=== PATIENT | female | born 2000 | race Caucasian/White ===

== ENCOUNTER 2019-09-09 11:19 | Emergency (ER) | payer OTHER, SELFPAY ==
[2019-09-09 11:25] VITALS: BP 147/82; PULSE 81; RESP 20; TEMP 36.8; O2SAT 98
--- NOTE | 2019-09-09 11:40 | ED.URI ---
HPI - URI/Sore Throat General Chief Complaint: Upper Respiratory Infection Stated Complaint: Congestion History of Present Illness HPI Narrative: This is a 19-year-old female comes in complaining of sinus pressure and congestion patient states that is been going on for the past 3 to 4 days patient says she has had headaches a lot of pain in her facial T-zone area. Patient states she is taken some Mucinex as well as some Tylenol for the pain denies any allergy medication. Related Data Home Medications Medication Instructions Recorded Confirmed sertraline 150 mg PO DAILY 09/09/19 09/09/19 Allergies Allergy/AdvReac Type Severity Reaction Status Date / Time amoxicillin AdvReac Mild Nausea and Unverified 09/09/19 11:23 Vomiting Review of Systems Review of Systems: Narrative: CONSTITUTIONAL: Denies fever, chills, or sweats. EYES: Denies visual changes, redness, or discharge. ENT: Reports rhinorrhea, congestion, sore throat, or otalgia. CARDIOVASCULAR:Denies chest pain, palpitations, or edema. RESPIRATORY: Denies cough or dyspnea. GASTROINTESTINAL: Denies abdominal pain, nausea, vomiting, or diarrhea. GENITOURINARY: Denies dysuria or hematuria. SKIN:[Denies rash or itching. MUSCULOSKELETAL:Denies back pain, joint pain, or myalgia. NEUROLOGIC: Denies headache, numbness, or weakness. PSYCHIATRIC:Denies anxiety or depression PMFSH Past Medical History Medical History (Updated 09/09/19 @ 11:42 by Rajinder Rainey NP) Anxiety Asthma Depression Migraine Surgical History Surgical History (Updated 06/28/19 @ 07:51 by David Huitron DO) History of nasal septoplasty Social History Social History Gender identity (if verbalized by the patient): Female Comments At time as signature, I have reviewed and agree with nursing past medical, social, surgical and family history. Please see nursing chart for further information. There is no relevant family history pertinent to the presenting complaint. Exam Narrative: Exam Narrative: GENERAL:Well-appearing, well-nourished, and in no acute distress. HEAD:Normocephalic, atraumatic. EYES: PERRLA and EOMI. ENT: Nares clear, no rhinorrhea or epistaxis. Mucous membranes moist. T-zone pressure facial pain, postnasal drainage with slight pharyngeal erythema NECK: Supple. CHEST: Clear to auscultation. No respiratory distress. HEART: Regular rate and rhythm. No murmur heard. Normal peripheral pulses. ABDOMEN: Soft, nontender, nondistended, normal active bowel sounds. EXTREMITIES: Normal range of motion. No edema. SKIN: Warm, dry, no rash. NEURO: No focal deficits. Alert and oriented x3. Course Vital Signs Vital signs: Vital Signs Temperature 98.2 F 09/09/19 11:25 Pulse Rate 81 09/09/19 11:25 Respiratory Rate 20 09/09/19 11:25 Blood Pressure 147/82 H 09/09/19 11:25 Pulse Oximetry 98 09/09/19 11:25 Temperature 98.2 F 09/09/19 11:25 Pulse Rate 81 09/09/19 11:25 Respiratory Rate 20 09/09/19 11:25 Blood Pressure 147/82 H 09/09/19 11:25 Pulse Oximetry 98 09/09/19 11:25 MDM - URI/Sore Throat Differential Diagnosis Differential diagnosis: Likely upper respiratory infection, otitis media, sinusitis, viral infection, bronchitis and pharyngitis Discharge Plan Discharge Clinical Impression: Rhinosinusitis Patient Disposition: Home, Self-Care Condition: Stable Instructions: Antibiotic Form, Rhinosinusitis (ED) Prescriptions: New loratadine [Claritin] 10 mg tablet 10 mg PO DAILY PRN (Reason: allergy symptoms) Qty: 30 RF: 0 amoxicillin-pot clavulanate [Augmentin] 875-125 mg tablet 1 tablet PO Q12H Qty: 20 RF: 0 fluticasone propionate [Flonase Allergy Relief] 50 mcg/actuation spray,suspension 1 spray NASAL DAILY Qty: 18.2 RF: 0 No Action sertraline 100 mg tablet 150 mg PO DAILY RF: 0 Follow-up/Referrals: Claudette,JOSE FinchP-SOHAN [Primary Care Provider] - Time of Disposition:
== END 2019-09-09 11:48 | disposition home or self-care (01) ==
PROVIDERS: Emergency Provider Nurse Practitioner Family; PCP Nurse Practitioner Family
DX: J31.0 Chronic rhinitis (principal); J32.9 Chronic sinusitis, unspecified; J45.909 Unspecified asthma, uncomplicated; F41.9 Anxiety disorder, unspecified; F32.9 Major depressive disorder, single episode, unspecified
CPT/HCPCS: 99213; G0463

== ENCOUNTER 2020-01-28 10:11 | Emergency (ER) | payer OTHER, SELFPAY ==
--- NOTE | ~2020-01-28 | XR_ITS ---
EXAMINATION: XR knee LT min 4V DATE: 01/28/2020 10:38 INDICATION: Left knee pain TECHNIQUE: Four views of the left knee were obtained. COMPARISON: None. FINDINGS: Alignment is normal. No fracture or osteochondral lesion. Joint spaces are normal with no e rosions. No joint effusion/synovitis. Soft tissues are unremarkable. IMPRESSION: 1. No acute osseous abnormality. Reviewed, dictated and finalized at location A.
[2020-01-28 10:23] VITALS: BP 149/96; PULSE 101; RESP 20; TEMP 36.9; O2SAT 99
--- NOTE | 2020-01-28 10:26 | ED.GENADULT ---
HPI - General Adult General Chief complaint: Extremity Problem,Nontraumatic Stated complaint: left knee pain Source: patient and RN notes reviewed Mode of arrival: ambulatory Limitations: no limitations History of Present Illness HPI narrative: Pt presents for evaluation of left knee pain for the last two days. She states that she was pushing her legs down in a reclining chair when she felt pain in left anterolateral knee. Pain is sharp, constant, 10/10, without radiation. No paresthesias. She tried taking OTC NSAIDs without much improvement. Hx of ligamentous repair in left knee in 2014. She has been able to ambulate since that time, however, movement makes her pain worse. No additional complaints or concerns. Related Data Home Medications Medication Instructions Recorded Confirmed sertraline 150 mg PO DAILY 09/09/19 01/28/20 Allergies Allergy/AdvReac Type Severity Reaction Status Date / Time amoxicillin AdvReac Mild Nausea and Verified 01/28/20 10:16 Vomiting Review of Systems Review of Systems: All systems reviewed & are unremarkable except as noted in HPI and below Constitutional: Constitutional: Reports as per HPI and Reports no additional constitutional complaints Eyes: Eyes: Reports as per HPI and Reports no additional eye complaints ENT: Reports system reviewed and no additional complaints, except as documented Cardiovascular: Cardiovascular: Reports as per HPI Respiratory: Respiratory: Reports as per HPI Gastrointestinal: Gastrointestinal: Reports as per HPI Genitourinary: Genitourinary: Reports no additional female genitourinary complaints Musculoskeletal: Musculoskeletal: Reports no additional musculoskeletal complaints, Reports as per HPI and Reports arthralgias (left knee pain) Integumentary/Breasts: Skin/Breast: Reports system reviewed and no additional complaints, except as docu Neurologic: Reports system reviewed and no additional complaints, except as documented Psychiatric: Psychiatric: Reports no additional psychiatric complaints Endocrine: Endocrine: Reports no additional endocrine complaints Hematologic/Lymphatic: Hematologic/Lymphatic: Reports no additional hematologic/lymphatic complaints Allergic/Immunologic: Allergic/Immunologic: Reports no additional allergic/immunologic complaints [facility] Past Medical History Medical History (Updated 01/28/20 @ 10:49 by Naseem Sutton, AKIRA, BC) Anxiety Asthma Depression Migraine Surgical History Surgical History (Updated 01/28/20 @ 10:38 by Naseem Sutton, AKIRA, BC) History of arthroplasty of left knee History of nasal septoplasty Family History Family History Mother No problems noted. Father No problems noted. Social History Social History Gender identity (if verbalized by the patient): Female Exam Const: General: healthy appearing, no acute distress and alert Nutritional Appearance: well nourished and obese Orientation/consciousness: patient oriented x3 HENMT: Head: normal to inspection Mouth: Yes moist mucous membranes Teeth and gingiva: dentition normal Throat: posterior oropharynx normal Eyes: Conjunctivae: conjunctivae normal Pupils: Equal, round and reactive pupils present EOM: EOMs intact bilaterally Neck: Neck: normal visual inspection and no lymphadenopathy Chest: Chest palpation & inspection: normal inspection of the chest Resp: Effort & Inspection: normal respiratory effort Auscultation: clear to auscultation bilaterally Cardio: Rate: regular rate Rhythm: regular rhythm GI: GI Palp: Yes Soft to palpation Percussion: Yes normal to percussion Auscultation: normal bowel sounds : General: Yes no CVA tenderness Back/Spine/Pelvis: Back: no CVA tenderness Skin: General skin exam: normal color Rashes: no rashes Wounds: no wounds Neuro: General: p
== END 2020-01-28 11:01 | disposition home or self-care (01) ==
PROVIDERS: Emergency Provider Nurse Practitioner
DX: S86.912A Strain of unspecified muscle(s) and tendon(s) at lower leg level, left leg, initial encounter (principal); X50.9XXA Other and unspecified overexertion or strenuous movements or postures, initial encounter; F32.9 Major depressive disorder, single episode, unspecified; F41.9 Anxiety disorder, unspecified
CPT/HCPCS: 73564; 99213; G0463

== ENCOUNTER 2020-09-07 18:59 | Emergency (ER) | payer OTHER, SELFPAY ==
[2020-09-07 19:10] VITALS: BP 147/85; PULSE 61; RESP 16; TEMP 36.2; O2SAT 100
--- NOTE | 2020-09-07 19:26 | ED.DENTAL ---
HPI - Dental/Oral General Chief complaint: Dental/Oral Stated complaint: Tooth Pain Time Seen by Provider: 09/07/20 19:26 Source: patient and RN notes reviewed Mode of arrival: ambulatory Limitations: no limitations History of Present Illness HPI Narrative: 20-year-old female presents to the [facility] with complaints of dental pain. states that she was seen at [facility] last week and was told she needed a root canal and was placed on a waiting list. No swelling noted. Facial symmetry noted. Tooth decay noted MD Complaint: tooth pain Teeth map: 1. Fractured tooth Related Data Home Medications Medication Instructions Recorded Confirmed sertraline 150 mg PO DAILY 09/09/19 09/07/20 Allergies Allergy/AdvReac Type Severity Reaction Status Date / Time amoxicillin AdvReac Mild Nausea and Verified 01/28/20 10:16 Vomiting Review of Systems Review of Systems: Narrative: CONSTITUTIONAL: Denies fever, chills, or sweats. EYES: Denies visual changes, redness, or discharge. ENT: Denies rhinorrhea, congestion, sore throat, or otalgia. right upper dental pain CARDIOVASCULAR: Denies chest pain, palpitations, or edema. RESPIRATORY: Denies cough or dyspnea. SKIN: Denies rash or itching. MUSCULOSKELETAL: Denies back pain, joint pain, or myalgia. NEUROLOGIC: Denies headache, numbness, or weakness. PSYCHIATRIC: Denies anxiety or depression. All other systems reviewed are negative, except as documented in HPI. [facility] Past Medical History Medical History (Updated 09/08/20 @ 15:42 by Pauly Arce) Anxiety Asthma Depression Migraine Surgical History Surgical History (Updated 01/28/20 @ 10:38 by AKIRA Sabillon, SOHAN) History of arthroplasty of left knee History of nasal septoplasty Family History Family History Mother No problems noted. Father No problems noted. Social History Social History Gender identity (if verbalized by the patient): Female Comments At the time of my signature, I reviewed and agree with the nursing past medical, surgical, social, and family history. There is no relevant family history pertinent to the patient complaint. Exam Narrative: Exam Narrative: GENERAL: This is a well-nourished, well-developed patient, in no apparent distress. Morbidly obese HEAD: normocephalic, atraumatic. EYES: PERRL. Sclera clear/white. Vision is grossly intact. EARS: External ears normal, auditory canals clear and without drainage, TMs normal without perforation. Hearing grossly intact. NOSE: External nose normal with no obvious nasal discharge, nares without redness, no rhinorrhea. THROAT: Mucous membranes moist, posterior pharynx clear. Dental decay noted NECK: Neck supple, non-tender without lymphadenopathy, masses or thyromegaly. CARDIOVASCULAR: Regular rate and rhythm without murmurs, gallops, or rubs. NEURO: awake, alert, and oriented to person, place and time. There were no obvious focal neurologic abnormalities. EXTREMITIES: No joint tenderness, effusion, or edema noted. BACK: Nontender without deformity. Course Vital Signs Vital signs: Vital Signs Temperature 97.1 F L 09/07/20 19:10 Pulse Rate 61 09/07/20 19:10 Respiratory Rate 16 09/07/20 19:10 Blood Pressure 147/85 H 09/07/20 19:10 Pulse Oximetry 100 09/07/20 19:10 Temperature 97.1 F L 09/07/20 19:10 Pulse Rate 61 09/07/20 19:10 Respiratory Rate 16 09/07/20 19:10 Blood Pressure 147/85 H 09/07/20 19:10 Pulse Oximetry 100 09/07/20 19:10 Reviewed. Encourage patient to follow-up with primary care provider for blood pressure recheck MDM - Dental/Oral MDM Narrative Medical decision making narrative: Encourage patient to keep calling in regards to dental providers. List will be provided as well. Discharge instructions reviewed with patient, as well as provided
== END 2020-09-07 19:36 | disposition home or self-care (01) ==
PROVIDERS: Emergency Provider Nurse Practitioner; PCP Nurse Practitioner Family
DX: K08.89 Other specified disorders of teeth and supporting structures (principal); S02.5XXA Fracture of tooth (traumatic), initial encounter for closed fracture; X58.XXXA Exposure to other specified factors, initial encounter; F41.9 Anxiety disorder, unspecified; F32.9 Major depressive disorder, single episode, unspecified; J45.909 Unspecified asthma, uncomplicated
CPT/HCPCS: 99213; G0463

== ENCOUNTER 2020-09-09 09:10 | Emergency (ER) | payer OTHER, SELFPAY ==
[2020-09-09 09:15] VITALS: BP 140/92; PULSE 85; RESP 20; TEMP 35.9; O2SAT 98
--- NOTE | 2020-09-09 11:51 | ED.GENADULT ---
HPI - General Adult General Chief complaint: Upper Respiratory Infection Stated complaint: nasal and chest congestion Time Seen by Provider: 09/09/20 11:09 Source: patient Mode of arrival: ambulatory Limitations: no limitations History of Present Illness HPI narrative: Patient presents with chief complaint of sinus congestion and tenderness over the past 3 days. Patient states she has taken Zyrtec, Wigraine Claritin. Patient reports she has drainage in the back of her throat that makes her cough. Patient reports she has asthma so she wanted to have it checked out before became bronchitis. Patient denies fever, chills, nausea, vomiting, diarrhea. Patient states that she did blow her nose today and the mucus was yellow and greenish in coloration initially. Related Data Allergies Allergy/AdvReac Type Severity Reaction Status Date / Time amoxicillin AdvReac Mild Nausea and Verified 09/09/20 11:08 Vomiting Review of Systems Review of Systems: Narrative: CONSTITUTIONAL: Denies fever, chills, or sweats. EYES: Denies visual changes, redness, or discharge. ENT: Reports sinus congestion and postnasal drip denies rhinorrhea, sore throat, or otalgia. CARDIOVASCULAR: Denies chest pain, palpitations, or edema. RESPIRATORY: Denies cough or dyspnea. GASTROINTESTINAL: Denies abdominal pain, nausea, vomiting, or diarrhea. GENITOURINARY: Denies dysuria or hematuria. SKIN: Denies rash or itching. MUSCULOSKELETAL: Denies back pain, joint pain, or myalgia. NEUROLOGIC: Denies headache, numbness, dizziness, or weakness. PSYCHIATRIC: Denies anxiety or depression. [facility] Past Medical History Medical History (Updated 09/09/20 @ 11:54 by Marianna Barrera PA-C) Anxiety Asthma Depression Migraine Surgical History Surgical History (Updated 01/28/20 @ 10:38 by AKIRA Sabillon, SOHAN) History of arthroplasty of left knee History of nasal septoplasty Family History Family History Mother No problems noted. Father No problems noted. Social History Social History Gender identity (if verbalized by the patient): Female Exam Narrative: Exam Narrative: GENERAL: Well-appearing, well-nourished, and in no acute distress. HEAD: Normocephalic, atraumatic. EYES: PERRLA and EOMI. ENT: Nares erythematous and swollen with clear mucus, no frontal or maxillary sinus tenderness with percussion. No rhinorrhea or epistaxis. Mucous membranes moist. Oropharynx without tonsillar hypertrophy exudate or other lesions. Bilateral TMs pearly arango nonbulging NECK: Supple. No adenopathy or masses. ROM intact CHEST: Clear to auscultation. No respiratory distress. No wheezes rales or rhonchi HEART: Regular rate and rhythm. No murmur heard. Normal peripheral pulses. ABDOMEN: Soft, nontender, nondistended, normal active bowel sounds. EXTREMITIES: Normal range of motion. No edema. SKIN: Warm, dry, no rash. NEURO: No focal deficits. Alert and oriented x3. PSYCH: Normal mood and affect. Course Vital Signs Vital signs: Vital Signs Temperature 96.7 F L 09/09/20 09:15 Pulse Rate 85 09/09/20 09:15 Respiratory Rate 20 09/09/20 09:15 Blood Pressure 140/92 H 09/09/20 09:15 Pulse Oximetry 98 09/09/20 09:15 Temperature 96.7 F L 09/09/20 09:15 Pulse Rate 85 09/09/20 09:15 Respiratory Rate 20 09/09/20 09:15 Blood Pressure 140/92 H 09/09/20 09:15 Pulse Oximetry 98 09/09/20 09:15 Medical Decision Making [facility] Narrative Medical decision making narrative: Instructed patient that since her symptoms have been for 3 days she needs to continue her antihistamine and Flonase use this daily. Instructed patient that she can use a [id number] sinus decongestant. Instructed her to use humidifier in her room and increase fluid intake to avoid dehydration. Patient to follow-up with her primary care if symp
[2020-09-09 12:02] VITALS: PULSE 85; RESP 16; O2SAT 100
== END 2020-09-09 12:03 | disposition home or self-care (01) ==
PROVIDERS: Emergency Provider Emergency Medicine; PCP Nurse Practitioner Family
DX: J45.909 Unspecified asthma, uncomplicated (principal)
CPT/HCPCS: 99283

== ENCOUNTER 2020-11-29 14:59 | Emergency (ER) | payer OTHER, SELFPAY ==
--- NOTE | ~2020-11-29 | CT_ITS ---
EXAMINATION: CT abdomen pelvis w con DATE: 11/29/2020 19:55 INDICATION: Left-sided abdominal pain. TECHNIQUE: Computed tomography (CT) of the abdomen and pelvis was performed with 100 mL Omnipaque 350 intravenous contrast. Automated exposure control and iterative reconstruction technique were employe d. The dose-length product was 1402.52 mGy-cm. COMPARISON: None. FINDINGS: The visualized portions of the lung bases are clear without pneumonia or pleural effusion. The heart size is normal. No pericardial effusion. The liver, gallbladder, spleen, pancreas, adrenal glands, and right kidney are normal. There is a 12 mm cyst in left kidney. There is a 3.9 cm cyst in right ovary. There are no dilated loops of bowel. The appendix is normal. There are no pathologically enlarged lymph nodes. There is no free intraperitoneal fluid. There are benign bone islands in the r ight pelvis and right renal head. IMPRESSION: 1. 3.9 cm cyst in right ovary, likely a follicular cyst. Reviewed, dictated and finalized at location A.
[2020-11-29 15:43] VITALS: BP 168/108; PULSE 86; RESP 18; TEMP 36.9; O2SAT 98
[2020-11-29 17:06] VITALS: BP 133/88; PULSE 65; RESP 18; O2SAT 99
--- NOTE | 2020-11-29 17:29 | ED.GENADULT ---
HPI - General Adult General Chief complaint: Unspecified Stated complaint: left lower abd pain Time Seen by Provider: 11/29/20 17:08 Source: RN notes reviewed History of Present Illness HPI narrative: Patient presents to emergency department from home for abdominal pain. Patient states she is had pain for the past 3 days pain is located left lower quadrant and radiates in the left flank described as sharp and stabbing in nature patient states she was seen by her PCP yesterday was found to have blood in her urine is scheduled for CT scan next week but continue to pain she denies any fevers or chills chest pain shortness of breath nausea vomiting diarrhea or any other symptoms. States she took no pain medication at home for the symptoms Related Data Allergies Allergy/AdvReac Type Severity Reaction Status Date / Time amoxicillin AdvReac Mild Nausea and Verified 11/29/20 17:11 Vomiting Review of Systems Review of Systems: Narrative: Gen.: Denies fevers or chills ENT: Denies congestion Respiratory: Denies shortness of breath or cough CV: Denies chest pain or palpitations GI: See HPI denies burning, urgency, frequency reports hematuria Musculoskeletal: Denies back pain or muscle pain Neuro: Denies numbness, tingling, weakness or focal weakness Skin: Denies rash Except as documented, all other systems reviewed and negative [facility] Past Medical History Medical History Anxiety Asthma Depression Migraine Surgical History Surgical History (Updated 01/28/20 @ 10:38 by Naseem Sutton, CLERK TYPIST, ) History of arthroplasty of left knee History of nasal septoplasty Family History Family History Mother No problems noted. Father No problems noted. Social History Social History (Updated 11/29/20 @ 17:30 by Elliot Dumont DO) Smoking status: Never smoker Gender identity (if verbalized by the patient): Female Exam Narrative: Exam Narrative: APPEARANCE: No acute distress, nontoxic, resting in bed HEENT: Normocephalic, atraumatic, OMM RESPIRATORY: No respiratory distress, clear to auscultation bilaterally with no rhonchi wheezing or rales CARDIOVASCULAR: RRR s murmur ABDOMINAL: Soft nondistended tender palpation left lower quadrant no tenderness left upper quadrant, right upper quadrant right lower quadrant no rebound or guarding, left flank tenderness MUSCULOSKELETAl: Moves all extremities. No clubbing, cyanosis or edema. NEURO: Awake and alert. Following commands, speech normal, no focal deficits SKIN:: Warm, dry. Normal Color PSYCHIATRIC: Normal affect/mood Course Course Emergency Course: Patient states that they are feeling much better at this time. States abdominal pain has improved. Repeat abdominal exam shows the patient's abdomen to be soft with no surgical abdomen present discussed with patient results of workup and diagnosis. Discussed need for follow-up with primary care physician, reasons to return to the emergency department in proper use of medication. Patient understands and agrees to current treatment plan Vital Signs Vital signs: Vital Signs Temperature 98.4 F 11/29/20 15:43 Pulse Rate 86 11/29/20 15:43 Respiratory Rate 18 11/29/20 15:43 Blood Pressure 168/108 H 11/29/20 15:43 Pulse Oximetry 98 11/29/20 15:43 Temperature 98.1 F 11/29/20 19:31 Pulse Rate 70 11/29/20 19:31 Respiratory Rate 14 11/29/20 19:31 Blood Pressure 150/91 H 11/29/20 19:31 Pulse Oximetry 100 11/29/20 19:31 Medical Decision Making MDM Narrative Medical decision making narrative: Patient's abdomen is soft without significant pain or signs of surgical abdomen on serial exams. Lab and x-ray evaluations are reviewed and patient is felt to be a reasonable candidate for outpatient management. Patient was instructed as to limitations of x-ray and laboratory evaluation an
[2020-11-29 17:37] LABS: Add Urine Microscopic? YES; Appearance Urine Cloudy (Clear); Bilirubin Urine Negative (Negative); Blood Urine Negative (Negative); Calcium Oxalate Crystals Urine Many /hpf; Color Urine Yellow (Yellow); Glucose Urine UA Negative (Negative); Ketones Urine Negative (Negative); Leukocyte Esterase Ur 1+ LEU/UL (Negative); Mucus Urine Few /lpf; Nitrate Urine Negative (Negative); Protein Urine 1+ mg/dL (Negative); Squamous Epithelial Cell Urine Many /hpf (Few); WBC Urine 0-3 /hpf
[2020-11-29 17:40] LABS: Specific Grav Ur 1.031 (1.001-1.035)
[2020-11-29] MEDS: SODIUM CHLORIDE 0.9% IV 1,000 ML 999 ML IV CONT (17:53)
[2020-11-29] MEDS: KETOROLAC 30 MG/ML VIAL (*BKC) IV PUSH (17:53)
[2020-11-29 18:03] LABS: Basophils Percent Auto 0.2 % (0.2-1.2); Eosinophils Absolute Auto 0.1 K/mm3 (0-0.3); Eosinophils Percent Auto 0.9 % (0-4.4); Hematocrit 40.4 % (37.0-47.0); Hemoglobin 13.1 g/dL (12.0-15.0); Immature Granulocyte Absolute 0.04 K/mm3 (0.00-0.031); Immature Granulocyte Percent A 0.4 % (0-0.5); Lymphocytes Absolute Auto 2.25 K/mm3 (0.9-3.2); Lymphocytes Percent Auto 24.3 % (18.3-44.2); Mean Corpuscular HGB Conc 32.4 g/dl (32-36); Mean Corpuscular Hemoglobin 27.9 pg (26-34); Mean Corpuscular Volume 86.1 fl (80-100); Monocytes Absolute Auto 0.9 K/mm3 (0.1-0.6); Monocytes Percent Auto 9.8 % (2.6-8.5); Neutrophils Percent Auto 64.4 % (45.5-73.1); Platelet Count Result 363 k/mm3 (150-375); Red Blood Count 4.69 M/mm3 (4.2-5.4); Red Cell Distribution Width 12.4 % (11.5-14.5); White Blood Count 9.3 K/mm3 (4.5-10.0)
[2020-11-29 19:29] LABS: Alanine Aminotransferase 24 U/L (4-35); Albumin Level 3.9 g/dL (3.5-5.1); Alkaline Phosphatase 64 U/L (38-126); Anion Gap 9 mmol/L (8-16); Aspartate Amino Transferase 43 U/L (14-36); Bilirubin,Total 0.2 mg/dL (0.2-1.3); Blood Urea Nitrogen 11 mg/dL (7-17); Calcium 9.2 mg/dL (8.4-10.2); Carbon Dioxide 25 mmol/L (22-30); Chloride 105 mmol/L (98-107); Estimated CRCL calculation 136 ml/min; Estimated Glomerular Filt Rate > 60; Glucose 83 mg/dL (65-105); Lipase 32 U/L (23-300); Potassium 3.7 mmol/L (3.4-5.0); Sodium 139 mmol/L (137-145)
[2020-11-29 19:31] VITALS: BP 150/91; PULSE 70; RESP 14; TEMP 36.7; O2SAT 100
[2020-11-29 20:28] VITALS: BP 133/82; PULSE 66; RESP 15; O2SAT 99
== END 2020-11-29 20:30 | disposition home or self-care (01) ==
PROVIDERS: Emergency Provider Emergency Medicine; PCP Nurse Practitioner Family
DX: N39.0 Urinary tract infection, site not specified (principal); N83.201 Unspecified ovarian cyst, right side; R10.32 Left lower quadrant pain
CPT/HCPCS: 36415; 74177; 80053; 81001; 81025; 83690; 85025; 96361; 96374; 99284; J1885; J7030; Q9967

== ENCOUNTER 2021-03-16 12:14 | Emergency (ER) | payer OTHER, SELFPAY ==
[2021-03-16 12:25] VITALS: BP 154/104; PULSE 87; RESP 18; TEMP 36.6; O2SAT 98
[2021-03-16 12:40] VITALS: BP 145/102; PULSE 85; RESP 18; O2SAT 99
--- NOTE | 2021-03-16 12:58 | ED.URI ---
HPI - URI/Sore Throat General Chief Complaint: Upper Respiratory Infection Stated Complaint: Bilateral Ear Pain,Diarrhea,Congestion Source: patient and RN notes reviewed Limitations: no limitations History of Present Illness HPI Narrative: The overweight, vaccinated patient-who is a non-smoker/nondrinker on minimal meds-presents with half week worsening of 2-week history of nasal congestion, scratchy sore throat, with bilateral ill ear fullness. She is in today as she's had a couple days of worsening chills and loose stools. She has been followed by ENT in the past with sinus surgeryx2 ; she has triggers, pet dog at home [no smokers, tho]. No fever measured, cough, vomiting/diarrhea, S OB, loss of taste/smell, CP, rash Related Data Home Medications Medication Instructions Recorded Confirmed albuterol sulfate 2.5 mg CONTINUOUS NEBULIZATION PRN 03/16/21 03/16/21 PRN buspirone 15 mg PO DAILY 03/16/21 03/16/21 fluoxetine 20 mg PO DAILY 03/16/21 03/16/21 Allergies Allergy/AdvReac Type Severity Reaction Status Date / Time amoxicillin AdvReac Mild Nausea and Verified 03/16/21 12:31 Vomiting Review of Systems Review of Systems: The patient has been informed that they may have pre-hypertension or Hypertension based on a BP reading in the department. I recommend that the patient call the primary care provider listed on their discharge instructions or a physician of their choice this week to arrange follow up for further evaluation of possible pre-hypertension or Hypertension General/Constitutional: No weight loss, POSSIBLE fever Eyes: N0: Redness,discharge Ears/Nose/Throat: No: Epistaxis,ear discharge Respiratory: Denies: Hemoptysis Gastrointestinal: No Vomiting, Bleeding-rectal Skin: No Lumps, eruption Neurologic: No Focal Weakness,Sz Hematologic: Denies: Petechiae/Purpura Psychiatric: No: Suicida ideationl All Other Systems: Reviewed and Negative [facility] Past Medical History Medical History Anxiety Asthma Depression Migraine Surgical History Surgical History (Updated 01/28/20 @ 10:38 by Naseem Sutton, [facility], ) History of arthroplasty of left knee History of nasal septoplasty Family History Family History Mother No problems noted. Father No problems noted. Social History Social History (Updated 11/29/20 @ 17:30 by Elliot Dumont DO) Smoking status: Never smoker Gender identity (if verbalized by the patient): Female Comments At time of signature, agree with nursing past medical, surgical, social and family history. There is no relevant family history pertinent to the presenting complaint Exam Narrative: General Appearance: Well appearing, Well nourished EYE: PERRLA, Conjunctiva clear Ears: Auditory canal normal, TM normal Nose: Rhinorrhea, Mucousal erythema Mouth/Throat: MM moist, Uvula midline, Pharyngeal erythema Neck: Supple, No adenopathy Respiratory: No respiratory distress, Breath sounds equal, Clear to auscultation Cardiovascular: RRR, No JVD Musculoskeletal: Non tender, Normal strength Skin: Warm, Dry Neurological: A&O x3, CN II-XII intact Psychiatric: Normal mood, Normal affect Course Vital Signs Vital signs: Vital Signs Temperature 97.8 F 03/16/21 12:25 Pulse Rate 87 03/16/21 12:25 Respiratory Rate 18 03/16/21 12:25 Blood Pressure 154/104 H 03/16/21 12:25 Pulse Oximetry 98 03/16/21 12:25 Temperature 97.8 F 03/16/21 12:25 Pulse Rate 85 03/16/21 12:40 Respiratory Rate 18 03/16/21 12:40 Blood Pressure 143/108 H 03/16/21 13:08 Pulse Oximetry 99 03/16/21 12:40 MDM - URI/Sore Throat Lab Data Labs: Lab Results 03/16/21 Range/Units 12:40 POC SARS CoV-2 Ag Negative (Negative) Strep Screen Presumptive Negative *(R
[2021-03-16 13:08] VITALS: BP 143/108
== END 2021-03-16 13:08 | disposition home or self-care (01) ==
PROVIDERS: Emergency Provider Emergency Medicine; PCP Nurse Practitioner Family
DX: R51.9 Headache, unspecified (principal); Z20.822 Contact with and (suspected) exposure to COVID-19; J45.909 Unspecified asthma, uncomplicated; F41.9 Anxiety disorder, unspecified; F32.A Depression, unspecified
CPT/HCPCS: 87081; 87426; 87880; 99213; C9803; G0463

== ENCOUNTER 2021-06-14 10:16 | Emergency (ER) | payer OTHER, SELFPAY ==
[2021-06-14 11:32] VITALS: BP 141/96; PULSE 67; RESP 18; TEMP 35.9; O2SAT 99
--- NOTE | 2021-06-14 12:04 | ED.DENTAL ---
HPI - Dental/Oral General Chief complaint: Dental/Oral Stated complaint: toothache Time Seen by Provider: 06/14/21 12:09 Source: patient Mode of arrival: ambulatory Limitations: no limitations History of Present Illness HPI Narrative: Dominik is a 21-year-old female patient who ambulated into the [facility]. Patient states she had a tooth ache for the last 2 days. Today the left side of her face is swollen. She states that she has a bad tooth on her left lower. Patient does not have allergy to amoxicillin which is caused vomiting. She has been using Aleve, Tylenol, and ibuprofen at home. She has seen the dentist. And was set up to have a root canal. Patient she cannot find an oral surgeon to the root canal. MD Complaint: tooth pain Related Data Allergies Allergy/AdvReac Type Severity Reaction Status Date / Time amoxicillin AdvReac Mild Nausea and Verified 06/14/21 12:11 Vomiting Review of Systems Review of Systems: CONSTITUTIONAL: Denies body aches, fever, chills, or sweats. EYES: Denies visual changes, redness, or discharge. ENT: Denies rhinorrhea, congestion, sore throat, or otalgia.+ Tooth ache/left facial swelling CARDIOVASCULAR: Denies chest pain, palpitations, or edema. RESPIRATORY: Denies cough or dyspnea. GASTROINTESTINAL: Denies abdominal pain, nausea, vomiting, or diarrhea. GENITOURINARY: Denies dysuria or hematuria. SKIN: Denies rash, itching, or wounds. MUSCULOSKELETAL: Denies back pain, joint pain, or myalgia. NEUROLOGIC: Denies headache, numbness, tingling, or weakness. PSYCH: Denies depression or anxiety. All systems reviewed & are unremarkable except as noted in HPI and below PMFSH Past Medical History Medical History Anxiety Asthma Depression Migraine Surgical History Surgical History History of arthroplasty of left knee History of nasal septoplasty Family History Family History Mother No problems noted. Father No problems noted. Social History Social History Smoking status: Never smoker Gender identity (if verbalized by the patient): Female Comments At time of signature, I have reviewed and agree with nursing past medical, surgical, social and family history unless otherwise noted. Please see nursing chart for further information. There is no relevant family history pertinent to the presenting complaint Exam Narrative: GENERAL: Well-appearing, well-nourished, and in no acute distress. HEAD: Normocephalic, atraumatic. EYES: EOMI. No redness or drainage. Conjunctivae normal. ENT: Mucous membranes pink and moist. Nares clear. No rhinorrhea. Tooth #19 has a small fissure on top. Previous filling is noted. Left lower facial swelling over the mandible is noted NECK: Normal AROM. Supple. No lymphadenopathy. CHEST: No respiratory distress. Clear to auscultation. MUSCULOSKELETAL: No bony tenderness. EXTREMITIES: Normal range of motion. No edema. SKIN: Warm, dry, no rash. Capillary refill normal. Normal skin turgor. NEURO: No focal deficits. Alert and oriented x3. Gait steady. PSYCH: Normal affect. No signs of depression or anxiety. Course Course Emergency Course: Patient was examined. She does have dental caries on tooth #19. Previous dental work is noted. She has a small fissure at the top of the tooth. She does have left-sided facial swelling above the mandible. Level of Care: Express Care Visit Vital Signs Vital signs: Vital Signs Temperature 35.9 C L 06/14/21 11:32 Pulse Rate 67 06/14/21 11:32 Respiratory Rate 18 06/14/21 11:32 Blood Pressure 141/96 H 06/14/21 11:32 Pulse Oximetry 99 06/14/21 11:32 Temperature 35.9 C L 06/14/21 11:32 Pulse Rate 67 06/14/21 11:32 Respiratory Rate 18 06/14/21 11:32 Blo
== END 2021-06-14 12:20 | disposition home or self-care (01) ==
PROVIDERS: Emergency Provider Nurse Practitioner Family; PCP Family Medicine
DX: K04.7 Periapical abscess without sinus (principal); J45.909 Unspecified asthma, uncomplicated
CPT/HCPCS: 99213; G0463

== ENCOUNTER 2022-05-19 13:01 | Emergency (ER) | payer OTHER, SELFPAY ==
--- NOTE | 2022-05-19 13:06 | ED.EYEPROB ---
HPI - Eye Problem General Chief complaint: Eye Problems Stated complaint: Lt Eye Irritation Time Seen by Provider: 05/19/22 13:04 Source: patient Mode of arrival: ambulatory Limitations: no limitations History of Present Illness HPI Narrative: Ayanna is a 22-year-old female patient presenting to clinic today with complaints of left eye discomfort. She reports her eye became itchy last night and began watering. States that she woke up this morning and her eye was matted shut up she denies any visual changes. Does have swelling to the lower eyelid with some discomfort. Related Data Home Medications Medication Instructions Recorded Confirmed escitalopram oxalate 5 mg tablet 5 mg PO DAILY 05/19/22 05/19/22 propranolol 10 mg tablet 10 mg PO DAILY 05/19/22 05/19/22 venlafaxine 75 mg capsule,extended 75 mg PO DAILY 05/19/22 05/19/22 release 24 hr Allergies Allergy/AdvReac Type Severity Reaction Status Date / Time amoxicillin AdvReac Mild Nausea and Verified 05/19/22 13:02 Vomiting Review of Systems Review of Systems: Pertinent positives per HPI. Patient denies any fever, chills, rash, headache, visual changes, dizziness, cough, runny nose, sore throat, shortness of breath, chest pain, palpitations, nausea, vomiting, diarrhea, constipation, abdominal pain, or any urinary issues. PMFSH Past Medical History Medical History Anxiety Asthma Depression Migraine Surgical History Surgical History History of arthroplasty of left knee History of nasal septoplasty Family History Family History Mother No problems noted. Father No problems noted. Social History Social History Smoking status: Never smoker Gender identity (if verbalized by the patient): Female Comments At the time of my signature, I reviewed and agree with the nursing past medical, surgical, social, and family history. There is no relevant family history pertinent to the patient complaint. Exam Narrative: General: Well-developed, well nourished, in no apparent distress Head: Normocephalic, atraumatic Eyes: Pupils equally round and reactive to light bilaterally, EOM intact, right sclera and conjunctive clear, no discharge, lids normal, left sclera and conjunctiva injected with watery discharge and lower eyelid swelling and tenderness Ears: TMs intact and clear, ear canals clear, no drainage, grossly hearing normal. Nose: Nares patent, no discharge, no inflammation, no sinus tenderness. Mouth: Oropharynx without lesions or masses, good dentition, MMM. Neck: Supple, trachea midline, no enlargement of anterior or posterior cervical nodes, no thyroid masses or goiter palpable. Cardio: Regular rate and rhythm, s1 and s2 normal, no murmur appreciated. Resp: Clear to auscultation bilaterally anteriorly and posteriorly, no rhonchi, rales, wheezing or rubs Course Course Emergency Course: Portions of this record may have been created with voice recognition software. Level of Care: Express Care Visit Vital Signs Vital signs: Vital Signs Temperature 36.1 C L 05/19/22 13:12 Pulse Rate 67 05/19/22 13:12 Respiratory Rate 20 05/19/22 13:12 Blood Pressure 143/86 H 05/19/22 13:12 Pulse Oximetry 100 05/19/22 13:12 Oxygen Delivery Room Air 05/19/22 13:12 Temperature 36.1 C L 05/19/22 13:12 Pulse Rate 67 05/19/22 13:12 Respiratory Rate 20 05/19/22 13:12 Blood Pressure 143/86 H 05/19/22 13:12 Pulse Oximetry 100 05/19/22 13:12 Oxygen Delivery Room Air 05/19/22 13:12 Vital signs reviewed MDM - Eye Problem MDM Narrative Medical decision making narrative: At the time of visit patient is resting comfortably on the exam table. I suspect the patient has
[2022-05-19 13:12] VITALS: BP 143/86; PULSE 67; RESP 20; TEMP 36.1; O2SAT 100
== END 2022-05-19 13:18 | disposition home or self-care (01) ==
PROVIDERS: Emergency Provider Nurse Practitioner Family; PCP Family Medicine
DX: H10.32 Unspecified acute conjunctivitis, left eye (principal); J45.909 Unspecified asthma, uncomplicated; F41.9 Anxiety disorder, unspecified; F32.A Depression, unspecified
CPT/HCPCS: 99213; G0463

== ENCOUNTER 2023-08-08 10:07 | Emergency (ER) | payer MEDICAID, SELFPAY ==
--- NOTE | 2023-08-08 10:14 | ED.GENADULT ---
HPI - General Adult General Chief complaint: Upper Respiratory Infection Stated complaint: UNKN Time Seen by Provider: 08/08/23 10:14 Source: patient Mode of arrival: ambulatory Limitations: no limitations History of Present Illness HPI narrative: 23-year-old female patient presents to clinic today with complaints of a productive cough for 4 weeks, a sore throat for 4 days, and left ear discomfort for 4 days. Patient reports taking [place] cold and flu without improvement of symptoms. Patient denies fever, chills, body aches. Patient denies nausea, vomiting, diarrhea. Patient was recently treated with antibiotics for a sinus infection but she does not recall what the antibiotics were called. patient has a history of asthma but has not used her inhaler and roughly 10 years and also has seasonal allergies for which she takes Claritin once daily. Related Data Home Medications Medication Instructions Recorded Confirmed escitalopram oxalate 5 mg tablet 5 mg PO DAILY 05/19/22 05/19/22 propranolol 10 mg tablet 10 mg PO DAILY 05/19/22 05/19/22 Allergies Allergy/AdvReac Type Severity Reaction Status Date / Time amoxicillin AdvReac Mild Nausea and Verified 08/08/23 10:31 Vomiting Review of Systems Review of Systems: CONSTITUTIONAL: Denies fever, chills, or sweats. EYES: Denies visual changes, redness, or discharge. ENT: Denies rhinorrhea, congestion, positive sore throat, and positive left otalgia. CARDIOVASCULAR: Denies chest pain, palpitations, or edema. RESPIRATORY: positive productive cough for 4 weeks, positive dyspnea with coughing and on exercertion at times. GASTROINTESTINAL: Denies abdominal pain, nausea, vomiting, or diarrhea. GENITOURINARY: Denies dysuria or hematuria. SKIN: Denies rash or itching. MUSCULOSKELETAL: Denies back pain, joint pain, or myalgia. NEUROLOGIC: Denies headache, numbness, or weakness. PSYCHIATRIC: Denies anxiety or depression. [facility] Past Medical History Medical History Anxiety Asthma Depression Migraine Surgical History Surgical History History of arthroplasty of left knee History of nasal septoplasty Family History Family History Mother No problems noted. Father No problems noted. Social History Social History Smoking status: Never smoker Gender identity (if verbalized by the patient): Female Comments At the time of my signature I agree with nursing past medical history, surgical, social, and family history. There is no relevant family history pertinent to the presenting complaint. Exam Narrative: GENERAL: Well-appearing, well-nourished, and in no acute distress. HEAD: Normocephalic, atraumatic. EYES: PERRLA and EOMI. ENT: Nares clear, no rhinorrhea or epistaxis. Mucous membranes moist. posterior oropharynx without erythema or edema. bilateral ear canals are free of drainage erythema and edema, tympanic membranes visualized with positive effusion with air bubbles that are clear. NECK: Supple. No lymphadenopathy CHEST: bilateral wheezing to all lobes on auscultation. No respiratory distress. HEART: Regular rate and rhythm. No murmur heard. Normal peripheral pulses. ABDOMEN: Soft, nontender, nondistended, normal active bowel sounds. EXTREMITIES: Normal range of motion. No edema. SKIN: Warm, dry, no rash. NEURO: No focal deficits. Alert and oriented x3. Course Course Level of Care: Express Care Visit Vital Signs Vital signs: Vital Signs Temperature 36.3 C L 08/08/23 10:24 Pulse Rate 84 08/08/23 10:24 Respiratory Rate 18 08/08/23 10:24 Blood Pressure 131/72 08/08/23 10:24 Pulse Oximetry 98 08/08/23 10:24 Oxygen Delivery Room Air 08/08/23 10:24 Temperature 36.3 C L 08/08/23 10:24 Pu
[2023-08-08 10:24] VITALS: BP 131/72; PULSE 84; RESP 18; TEMP 36.3; O2SAT 98
== END 2023-08-08 11:15 | disposition home or self-care (01) ==
PROVIDERS: Emergency Provider Nurse Practitioner Family; PCP Family Medicine
DX: J45.901 Unspecified asthma with (acute) exacerbation (principal); J30.2 Other seasonal allergic rhinitis
CPT/HCPCS: 87081; 87880; 99213; G0463